=== PATIENT | male | born 1940 | race Caucasian/White ===

== ENCOUNTER 2017-10-24 09:51 | Emergency (ER) | payer MEDICARE, BC, OTHER ==
--- NOTE | 2017-10-24 10:29 | ER Document Report ---
ED Medical Screen (RME) - General Chief Complaint: Fever Stated Complaint: FEVER Time Seen by Provider: 10/24/17 10:22 Notes: Patient in good health and doing fine yesterday, but about 3:30 AM this morning , he got up to go to the bathroom and noticed he had chills. He went back to bed and 6:30 AM, he got up to go the bathroom again and "collapsed". witnessed the fall. Says that he was a bit "ny", but never actually completely lost consciousness. He also hit his left ribs when he fell. took his temperature at 8:30 AM and it was 101.8. Patient has a history of pneumonia 3 or 4 times in the past. No history of COPD or asthma. Non-smoker. NIDDM, hypertension, high cholesterol History of a heart murmur. TRAVEL OUTSIDE OF THE [place] IN LAST 30 DAYS: No - Related Data Allergies/Adverse Reactions: morphine Allergy (Verified 10/24/17 09:52) Past Medical History - Social History Chew tobacco use (# tins/day): No Frequency of alcohol use: None Drug Abuse: None Renal/ Medical History: Denies: Hx Peritoneal Dialysis Psychiatric Medical History: Denies: Hx Depression Physical Exam - Vital signs Vitals: Temp Pulse Resp BP Pulse Ox 99.7 F 93 20 127/70 H 92 10/24/17 10:15 10/24/17 10:15 10/24/17 10:15 10/24/17 10:15 10/24/17 10:15 Course - Vital Signs Vital signs: Temp Pulse Resp BP Pulse Ox 99.7 F 93 20 127/70 H 92 10/24/17 10:15 10/24/17 10:15 10/24/17 10:15 10/24/17 10:15 10/24/17 10:15
[2017-10-24 11:31] LABS: ABSOLUTE BASOPHILS # (AUTO) 0.1 10^3/uL (0.0-0.2); ABSOLUTE EOSINOPHILS # (AUTO) 0.1 10^3/uL (0.0-0.6); ABSOLUTE LYMPHOCYTES (AUTO) 0.8 10^3/uL (0.5-4.7); ABSOLUTE NEUT (AUTO) 10.4 10^3/uL (1.7-8.2); BASOPHILS % (AUTO) 0.5 % (0-2); EOSINOPHILS % (AUTO) 0.6 % (0-6); HEMATOCRIT 41.2 % (37.9-51.0); HEMOGLOBIN 13.8 g/dL (13.5-17.0); LYMPHOCYTES % (AUTO) 6.3 % (13-45); MEAN CORPUSCULAR HEMOGLOBIN 30.5 pg (27.0-33.4); MEAN CORPUSCULAR HGB CONC 33.5 g/dL (32.0-36.0); MEAN CORPUSCULAR VOLUME 91 fl (80-97); MONOCYTES % (AUTO) 8.4 % (3-13); PLATELET COUNT 244 10^3/uL (150-450); RED BLOOD COUNT 4.53 10^6/uL (4.35-5.55); RED CELL DISTRIBUTION WIDTH 14.7 % (11.5-14.0); SEGMENTED NEUTROPHILS % (AUTO) 84.2 % (42-78); TOTAL CELLS COUNTED % (AUTO) 100 %; WHITE BLOOD COUNT 12.3 10^3/uL (4.0-10.5)
[2017-10-24 11:47] LABS: APPEARANCE,URINE CLEAR; BILIRUBIN,URINE NEGATIVE (NEGATIVE); COLOR,URINE YELLOW; GLUCOSE, URINE NEGATIVE (NEGATIVE); KETONES,URINE NEGATIVE (NEGATIVE); LEUKOCYTE ESTERASE,URINE NEGATIVE (NEGATIVE); NITRITE,URINE NEGATIVE (NEGATIVE); PROTEIN,URINE NEGATIVE (NEGATIVE); URINE SPECIFIC GRAVITY 1.027
[2017-10-24 11:48] LABS: ALANINE AMINOTRANSFERASE 37 U/L (21-72); ALBUMIN 4.4 g/dL (3.5-5.0); ALKALINE PHOSPHATASE 64 U/L (38-126); ANION GAP 14 (5-19); ASPARTATE AMINO TRANSFERASE 26 U/L (17-59); BILIRUBIN,DIRECT 0.2 mg/dL (0.0-0.4); BILIRUBIN,TOTAL 0.5 mg/dL (0.2-1.3); BLOOD UREA NITROGEN 23 mg/dL (7-20); CALCIUM 9.3 mg/dL (8.4-10.2); CARBON DIOXIDE 26 mmol/L (22-30); CHLORIDE 100 mmol/L (98-107); GLUCOSE 135 mg/dL (75-110); POTASSIUM 4.2 mmol/L (3.6-5.0); SODIUM 139.8 mmol/L (137-145); TOTAL PROTEIN 6.6 g/dL (6.3-8.2)
--- NOTE | 2017-10-24 11:51 | RADIOLOGY REPORT (SQ) ---
EXAM DESCRIPTION: CT HEAD WITHOUT COMPLETED DATE/TIME: 10/24/2017 11:42 am REASON FOR STUDY: Collapsed, hit left face COMPARISON: None. TECHNIQUE: Axial images acquired through the brain without intravenous contrast. Images reviewed wi th bone, brain and subdural windows. Images stored on PACS. All CT scanners at this facility use dose modulation, iterative reconstruction, and/or weight based d osing when appropriate to reduce radiation dose to as low as reasonably achievable (ALARA). [facility]: Dose Right [facility]: CareDose [facility]: Dose Right [facility]: Teradose 4D [facility]: Smart RV ID RADIATION DOSE: mGy. LIMITATIONS: None. FINDINGS: VENTRICLES: Prominent. CEREBRUM: No masses. No hemorrhage. No midline shift. Areas of low density in the white matter mos t likely due to chronic micro-vascular ischemic change. No evidence for acute infarction. CEREBELLUM: No masses. No hemorrhage. No alteration of density. No evidence for acute infarction. EXTRAAXIAL SPACES: Mild age-related involutional change. No fluid collections. No masses. ORBITS AND GLOBE: No intra- or extraconal masses. Normal contour of globe without masses. CALVARIUM: No fracture. PARANASAL SINUSES: No fluid or mucosal thickening. SOFT TISSUES: No mass or hematoma. OTHER: No other significant finding. IMPRESSION: No acute abnormality in the brain. EVIDENCE OF ACUTE STROKE: NO. TECHNICAL DOCUMENTATION: JOB ID: [id number] Quality ID # [id number]: Final reports with documentation of one or more dose reduction techniques (e.g., Au tomated exposure control, adjustment of the mA and/or kV according to patient size, use of iterative reconstruction technique) 2010 [employer]- All Rights Reserved Reading location - IP/workstation name: [email or web address]
[2017-10-24] MEDS ORDERED: NORMAL SALINE 1000 ML 1,000 ML IV ONE (11:53)
[2017-10-24 12:01] LABS: TROPONIN I < 0.012 ng/mL
--- NOTE | 2017-10-24 12:16 | RADIOLOGY REPORT (SQ) ---
EXAM DESCRIPTION: CT CHEST WITHOUT COMPLETED DATE/TIME: 10/24/2017 11:47 am REASON FOR STUDY: fall, left side COMPARISON: None. TECHNIQUE: CT scan performed of the chest without intravenous contrast. Images reviewed with lung, soft tissue and bone windows. Reconstructed coronal and sagittal MPR images reviewed. All images st ored on PACS. All CT scanners at this facility use dose modulation, iterative reconstruction, and/or weight based d osing when appropriate to reduce radiation dose to as low as reasonably achievable (ALARA). [facility]: Dose Right [facility]: CareDose [facility]: Dose Right [facility]: Teradose 4D [facility]: Smart Technologies RADIATION DOSE: CT Rad equipment meets quality standard of care and radiation dose reduction techniq ues were employed. CTDIvol: 14.4 mGy. DLP: 790 mGy-cm. mGy. LIMITATIONS: No technical limitations. FINDINGS: LUNGS AND PLEURA: Segmental airspace disease left lower lobe. Subsegmental airspace disea se in the left upper lobe and right lower lobe. HILAR AND MEDIASTINAL STRUCTURES: No identified masses or abnormal nodes. No obvious aneurysm. HEART AND VASCULAR STRUCTURES: No aneurysm. No pericardial effusion. UPPER ABDOMEN: No significant findings. Limited exam. THYROID AND OTHER SOFT TISSUES: No masses. No adenopathy. BONES: No significant finding. HARDWARE: None in the chest. OTHER: No other significant findings. IMPRESSION: Left upper lobe and bilateral lower lobe airspace disease suspicious for pneumonia but c ould also represent lung contusion. However no rib fractures are identified. Clinical correlation i s needed. TECHNICAL DOCUMENTATION: JOB ID: [id number] Quality ID # [id number]: Final reports with documentation of one or more dose reduction techniques (e.g., Au tomated exposure control, adjustment of the mA and/or kV according to patient size, use of iterative reconstruction technique) 2010 [employer]- All Rights Reserved Reading location - IP/workstation name: [email or web address]
[2017-10-24] MEDS ORDERED: CEFTRIAXONE 1 GM/D5W RTU 1 GM/50 ML RTUPB IV ONE (12:34)
[2017-10-24] MEDS ORDERED: CEFTRIAXONE INJ 1000 MG VIAL IV ONE (13:06)
--- NOTE | 2017-10-24 13:09 | ER Document Report ---
ED General - General Chief Complaint: Fever Stated Complaint: FEVER Time Seen by Provider: 10/24/17 10:22 Mode of Arrival: Ambulatory Information source: Patient Notes: 77-year-old male resents with complaints of difficulty breathing. Patient notes he had a fever generalized body aches but that when he awoke this morning he had a syncopal episode falling and striking his back and his lungs. Patient notes difficulty breathing. Patient denies any nausea or vomiting TRAVEL OUTSIDE OF THE [place] IN LAST 30 DAYS: No - HPI Onset: This morning Onset/Duration: Sudden Quality of pain: Achy Severity: Mild Pain Level: 1 Associated symptoms: Body/muscle aches, Fever, Shortness of breath Exacerbated by: Deep breathing Relieved by: Denies Similar symptoms previously: No Recently seen / treated by doctor: No - Related Data Allergies/Adverse Reactions: morphine Allergy (Verified 10/24/17 09:52) Past Medical History - Social History Smoking Status: Never Smoker Cigarette use (# per day): No Chew tobacco use (# tins/day): No Smoking Education Provided: No Frequency of alcohol use: None Drug Abuse: None Family History: Reviewed & Not Pertinent Patient has suicidal ideation: No Patient has homicidal ideation: No Renal/ Medical History: Denies: Hx Peritoneal Dialysis Psychiatric Medical History: Denies: Hx Depression - Immunizations Hx Pneumococcal Vaccination: 08/24/10 Review of Systems - Review of Systems Notes: REVIEW OF SYSTEMS: CONSTITUTIONAL : Admits to fevers EENT: Denies eye, ear, throat, or mouth pain or symptoms. Denies nasal or sinus congestion or discharge. Denies throat, tongue, or mouth swelling or difficulty swallowing. CARDIOVASCULAR: Denies chest pain. Denies palpitations or racing or irregular heart beat. Denies ankle edema. RESPIRATORY: Admits to shortness of breath difficulty breathing GASTROINTESTINAL: Denies abdominal pain or distention. Denies nausea, vomiting , or diarrhea. Denies blood in vomitus, stools, or per rectum. Denies black, tarry stools. Denies constipation. GENITOURINARY: Denies difficulty urinating, painful urination, burning, frequency, blood in urine, or discharge. MUSCULOSKELETAL: Admits to body aches SKIN: Denies rash, lesions or sores. HEMATOLOGIC : Denies easy bruising or bleeding. LYMPHATIC: Denies swollen, enlarged glands. NEUROLOGICAL: Denies confusion or altered mental status. Denies passing out or loss of consciousness. Denies dizziness or lightheadedness. Denies headache. Denies weakness or paralysis or loss of use of either side. Denies problems with gait or speech. Denies sensory loss, numbness, or tingling. Denies seizures. PSYCHIATRIC: Denies anxiety or stress. Denies depression, suicidal ideation, or homicidal ideation. ALL OTHER SYSTEMS REVIEWED AND NEGATIVE. Dictation was performed using [employer] voice recognition software PHYSICAL EXAMINATION: GENERAL: Well-appearing, well-nourished and in no acute distress. HEAD: Atraumatic, normocephalic. EYES: Pupils equal round and reactive to light, extraocular movements intact, sclera anicteric, conjunctiva are normal. ENT: Nares patent, oropharynx clear without exudates. Moist mucous membranes. NECK: Normal range of motion, supple without lymphadenopathy LUNGS: Coarse breath sounds all throughout HEART: Regular rate and rhythm without murmurs ABDOMEN: Soft, nontender, nondistended abdomen. No guarding, no rebound. No masses appreciated. Musculoskeletal: Normal range of motion, no pitting or edema. No cyanosis. NEUROLOGICAL: Cranial nerves grossly intact. Normal speech, normal gait. Normal sensory, motor exams PSYCH: Normal mood, normal affect. SKIN: Contusions noted to the left back left anterior chest wall Physical Exam - Vital signs Vitals: Temp Pulse Resp BP Pulse Ox 99.7 F 93 20 127/70 H 92 10/24/17 10:15 10/24/17 10:15 10/24/17 10:15 10/24/17 10:15 10/24/17 10:15 Course - Re-evaluation Re-evalutation: Given patient's fever hypoxemia initial concern was for pneumonia versus influenza, however given the traumatic injury, a CT was performed which did note pulmonary contusions, 10/24/17 13:09 I had initially spoken with surgeon railroad construction director Dr. Eason, he requests transfer due to hypoxemia and age, I did speak with [facility] transfer center and ED physician Dr Alas who will accept the patient 10/24/17 16:28 Patient had been transported and was evaluated prior to his departure, he was stable in no distress but on nasal cannula - Vital Signs Vital signs: Temp Pulse Resp BP Pulse Ox 97.5 F 72 17 100/54 L 98 10/24/17 15:38 10/24/17 15:38 10/24/17 15:38 10/24/17 15:38 10/24/17 15:38 - Laboratory Result Diagrams: 10/24/17 11:00 10/24/17 11:00 Laboratory results interpreted by me: 10/24/17 10/24/17 10/24/17 11:00 11:00 11:00 WBC 12.3 H RDW 14.7 H Seg Neutrophils % 84.2 H Lymphocytes % 6.3 L Absolute Neutrophils 10.4 H BUN 23 H Glucose 135 H Urine Urobilinogen 4.0 H - Diagnostic Test Radiology reviewed: Image reviewed, Reports reviewed - Pulmonary contusions Critical Care Note - Critical Care Note Total time excluding time spent on procedures (mins): 40 Comments: 40 minutes of critical care time spent in direct contact evaluating and reevaluating the patient, treating symptoms, reviewing labs and studies and speaking with family and consultants excluding any procedures Discharge - Discharge Clinical Impression: Flu-like symptoms, Hypoxemia Contusion of lung Qualifiers: Encounter type: initial encounter Laterality: bilateral Qualified Code(s): S27.322A - Contusion of lung, bilateral, initial encounter Condition: Stable Disposition: [facility] Referrals: WILFREDO LABOY MD [Primary Care Provider] - Follow up as needed
[2017-10-24 15:41] VITALS: BP 100/54
--- NOTE | 2017-10-24 17:59 | EKG REPORT ---
SEVERITY:- ABNORMAL ECG - SINUS RHYTHM PROBABLE LEFT ATRIAL ABNORMALITY NONSPECIFIC T ABNORMALITIES, LATERAL LEADS : Confirmed by: Jose Pierce MD 24-Oct-2017 17:59:14
== END 2017-10-24 15:41 | disposition short-term general hospital (02) ==
LOC: ER 09:51
DX: S27.322A Contusion of lung, bilateral, initial encounter (principal); W19.XXXA Unspecified fall, initial encounter; Y93.89 Activity, other specified; R09.02 Hypoxemia; R50.9 Fever, unspecified; R06.02 Shortness of breath; Z88.5 Allergy status to narcotic agent
CPT/HCPCS: 93005; 99291; 96361; 96365; 36415; 87040; 82553; 85025; 80053; 81001; 84484; 70450; 71250; 93010; J0696; J7030

== ENCOUNTER 2019-04-12 07:23 | Day surgery (SDC) | payer MEDICARE, BC, OTHER ==
[~2019-04-12 07:23] MED LIST: BUPIVACAINE HCL 0.75% INJ/PF (7.5 MG/1 ML) 10 ML SDV OS PRN; KETOROLAC TROMETHAMINE 0.45% 4 DROP/0.4 ML DROPERETTE OS PRN; LIDOCAINE 4% INJ/PF (40 MG/ML) 5 ML AMPUL OS PRN; MIDAZOLAM 2 MG/2 ML INJ ONE
[2019-04-12] MEDS ORDERED: CHONDR SU A NA/HYALUR INTRAOC KIT (SURGICARE) ONE (07:24)
[2019-04-12] MEDS ORDERED: EPINEPHRINE INJ/PF 1 MG/1 ML AMPULE ONE (07:24)
[2019-04-12] MEDS ORDERED: LIDOCAINE 1% INJ-PF (10 MG/ML) 30 ML SDV ONE (07:24)
[2019-04-12] MEDS: TETRACAINE HCL 0.5% OPH SOLN 4 ML OS PRN ×3 (08:10→08:44)
[2019-04-12] MEDS: CYCLOPENTOLATE 0.2%/PHENYLEPHRINE 1% OPH SOLN 2 ML OS PRN ×3 (08:11→08:35)
[2019-04-12] MEDS: BESIFLOXACIN HCL 0.6% OPH SUSP 5 ML BOTTLE OS PRN ×4 (08:11→09:21)
[2019-04-12] MEDS: TROPICAMIDE 1% OPH SOLN 3 ML OS PRN ×3 (08:11→08:35)
[2019-04-12] MEDS: DORZOLAMIDE HCL 2%/TIMOLOL MALEAT 0.5% OPH SOLN 10 ML OS PRN ×2 (09:21)
[2019-04-12] MEDS ORDERED: TRIAMCINOLONE ACETONIDE INJ 40 MG/1 ML VIAL ONE (12:37)
[2019-04-12] MEDS ORDERED: NORMAL SALINE INJ/PF 0.9% 10 ML SDV ONE (12:37)
--- NOTE | 2019-04-12 14:52 | Operative Report ---
Operative Report-[facility] Operative Report: DATE OF SURGERY: 04/12/2019 PREOPERATIVE DIAGNOSIS: CATARACT, LEFT EYE. POSTOPERATIVE DIAGNOSIS: CATARACT, LEFT EYE. PROCEDURE PERFORMED: PHACOEMULSIFICATION WITH POSTERIOR CHAMBER INTRAOCULAR LENS, LEFT EYE. Intraocular Lens Model : Toric intraocular lens SN 6 A T3 20.0 diopter Total Phaco Time: 4.87 CDE SURGEON: ITALIA JORGENSEN MD ANESTHESIA: TOPICAL WITH MAC. INDICATIONS FOR SURGERY: Difficulty with night driving PROCEDURE: The patient was brought to the Operating Room and placed in a seated position. a lid speculum was placed in the eye. the 0.180, and 270 degree axis of the cornea was marked with a toric marker. the patien was place in a reclining position. Following tetracaine drops, topical anesthesia was administered. This consisted of instrument wipe pledgets soaked in a solution of 4% Xylocaine mixed with 0.75% Marcaine in a 1:2 ratio. A 2 x 1 cm pledget was placed in the superior fornix. A 1 x 1 cm pledget was placed in the inferior fornix. The eye was patched shut for 5 minutes. The patch was removed. The eye was sterilely prepped and draped in the usual manner. Lid speculum was placed in the eye. The pledgets were removed. 4-0 black silk sutures were placed around the superior and the inferior rectus muscles to be used as traction. A conjunctival peritomy was made at the 10 o'clock position. Hemostasis was obtained with bipolar cautery. A posterior limbal groove was created using a crescent knife and dissected anteriorly towards the cornea. A sharp point blade was used to create a paracentesis site at the 2 o'clock position. 0.2 cc non preserved Lidocaine was injected into the anterior chamber. A 2.4 mm keratome was used to enter the anterior chamber through the groove. Viscoelastic was injected into the anteriorchamber. An anterior capsulotomy was performed using Utrata forceps in acapsulorrhexis fashion. Hydrodissection and hydrodelineation were performed. Phacoemulsification was performed in [id number] technique. Following this, the I/A unit was used to remove residual cortex. Viscoelastic was injected into the capsular bag. The Intraocular lens was placed in the capsular bag. The 173 degree axis of the eye was marked using a toric marker and the previously marked sites as reference. The lens was centered at this axis. The I/A unit was used to remove residual viscoelastic. The wound was seen to be watertight under high and low pressure, and no sutures were placed. The intraocular lens was well centered. The pressure was adjusted in the eye to normal pressure. The 4-0 black silk sutures and lid speculum were removed. The eye was shielded after Besivance and Cosopt drops were placed. The patient tolerated the procedure well and was sent to the Recovery Room in good condition.
--- NOTE | 2019-04-12 14:53 | PDOC DISCHARGE SUMMARY ---
Discharge Summary-[facility] Discharge Summary: DATE: 04/12/2019 FINAL DIAGNOSIS: CATARACT, LEFT EYE PROCEDURE: Cataract surgery with toric intraocular lens implant left eye HOSPITAL COURSE: The patient will be discharged to home. The patient is instructed to resume preoperative medications, take Tylenol as needed for discomfort, to keep the eye shielded, They should use the prescribed antibiotic, NSAID, and steroid at 3 PM and 8 PM, and to follow up in my office in 1 day.
== END 2019-04-12 10:02 | disposition home or self-care (01) ==
LOC: SC 07:23
PROVIDERS: ATTEND Ophthalmology
DX: H25.813 Combined forms of age-related cataract, bilateral (principal); H04.123 Dry eye syndrome of bilateral lacrimal glands; I10 Essential (primary) hypertension; Z79.899 Other long term (current) drug therapy; E11.9 Type 2 diabetes mellitus without complications; Z87.891 Personal history of nicotine dependence
CPT/HCPCS: 66984; 82962; 00142; J2250; J3490 ×6; A9270; J0171; J3301; 142; V2787

== ENCOUNTER 2019-05-03 08:25 | Day surgery (SDC) | payer MEDICARE, BC, OTHER ==
[~2019-05-03 08:25] MED LIST changes: -BUPIVACAINE HCL 0.75% INJ/PF (7.5 MG/1 ML) 10 ML SDV OS PRN; +KETOROLAC TROMETHAMINE 0.45% 4 DROP/0.4 ML DROPERETTE OD PRN; -KETOROLAC TROMETHAMINE 0.45% 4 DROP/0.4 ML DROPERETTE OS PRN; -LIDOCAINE 4% INJ/PF (40 MG/ML) 5 ML AMPUL OS PRN; -MIDAZOLAM 2 MG/2 ML INJ ONE; +TETRACAINE HCL 0.5% OPH SOLN 4 ML OD PRN
[2019-05-03] MEDS ORDERED: MIDAZOLAM 2 MG/2 ML INJ ONE (08:57)
[2019-05-03] MEDS ORDERED: ONDANSETRON HCL INJ/PF 4 MG/2 ML SDV ONE (08:57)
[2019-05-03] MEDS ORDERED: FENTANYL CITRATE INJ/PF 100 MCG/2 ML AMPUL ONE (08:58)
[2019-05-03] MEDS: BESIFLOXACIN HCL 0.6% OPH SUSP 5 ML BOTTLE OD PRN ×4 (09:30→10:56)
[2019-05-03] MEDS: TROPICAMIDE 1% OPH SOLN 3 ML OD PRN ×3 (09:30→09:50)
[2019-05-03] MEDS: CYCLOPENTOLATE 0.2%/PHENYLEPHRINE 1% OPH SOLN 2 ML OD PRN ×3 (09:30→09:50)
[2019-05-03] MEDS: TETRACAINE HCL 0.5% OPH SOLN 0.6 ML DROPERETTE OD PRN ×3 (09:30→10:13)
[2019-05-03] MEDS: LIDOCAINE 4% INJ/PF (40 MG/ML) 5 ML AMPUL OD PRN ×2 (10:25)
[2019-05-03] MEDS: BUPIVACAINE HCL 0.75% INJ/PF (7.5 MG/1 ML) 10 ML SDV OD PRN ×2 (10:25)
[2019-05-03] MEDS: CHONDR SU A NA/HYALUR INTRAOC KIT (SURGICARE) ONE ×2 (10:38)
[2019-05-03] MEDS: EPINEPHRINE INJ/PF 1 MG/1 ML AMPULE ONE ×2 (10:38)
[2019-05-03] MEDS: LIDOCAINE 1% INJ-PF (10 MG/ML) 30 ML SDV ONE ×2 (10:38)
[2019-05-03] MEDS: DORZOLAMIDE HCL 2%/TIMOLOL MALEAT 0.5% OPH SOLN 10 ML OD PRN ×2 (10:56)
--- NOTE | 2019-05-03 14:16 | Operative Report ---
Operative Report-[facility] Operative Report: DATE OF SURGERY: 05/03/2019 PREOPERATIVE DIAGNOSIS: CATARACT, RIGHT EYE. POSTOPERATIVE DIAGNOSIS: CATARACT,RIGHT EYE. PROCEDURE PERFORMED: PHACOEMULSIFICATION WITH POSTERIOR CHAMBER INTRAOCULAR LENS, RIGHT EYE. Intraocular Lens Model : SN 6 A T4 20.5 toric Total Phaco Time: 4.49 CDE SURGEON: ITALIA JORGENSEN MD ANESTHESIA: TOPICAL WITH MAC. INDICATIONS FOR SURGERY: Difficulty with night driving PROCEDURE: The patient was brought to the Operating Room and placed in a seated position. a lid speculum was placed in the eye. the 0.180, and 270 degree axis of the cornea was marked with a toric marker. the patien was place in a reclining position. Following tetracaine drops, topical anesthesia was administered. This consisted of instrument wipe pledgets soaked in a solution of 4% Xylocaine mixed with 0.75% Marcaine in a 1:2 ratio. A 2 x 1 cm pledget was placed in the superior fornix. A 1 x 1 cm pledget was placed in the inferior fornix. The eye was patched shut for 5 minutes. The patch was removed. The eye was sterilely prepped and draped in the usual manner. Lid speculum was placed in the eye. The pledgets were removed. 4-0 black silk sutures were placed around the superior and the inferior rectus muscles to be used as traction. A conjunctival peritomy was made at the 10 o'clock position. Hemostasis was obtained with bipolar cautery. A posterior limbal groove was created using a crescent knife and dissected anteriorly towards the cornea. A sharp point blade was used to create a paracentesis site at the 2 o'clock position. 0.2 cc non preserved Lidocaine was injected into the anterior chamber. A 2.4 mm keratome was used to enter the anterior chamber through the groove. Viscoelastic was injected into the anteriorchamber. An anterior capsulotomy was performed using Utrata forceps in acapsulorrhexis fashion. Hydrodissection and hydrodelineation were performed. Phacoemulsification was performed in [id number] technique. Following this, the I/A unit was used to remove residual cortex. Viscoelastic was injected into the capsular bag. The Intraocular lens was placed in the capsular bag. The 170 degree axis of the eye was marked using a toric marker and the previously marked sites as reference. The lens was centered at this axis. The I/A unit was used to remove residual viscoelastic. The wound was seen to be watertight under high and low pressure, and no sutures were placed. The intraocular lens was well centered. The pressure was adjusted in the eye to normal pressure. The 4-0 black silk sutures and lid speculum were removed. The eye was shielded after Besivance and Cosopt drops were placed. The patient tolerated the procedure well and was sent to the Recovery Room in good condition.
== END 2019-05-03 11:35 | disposition home or self-care (01) ==
LOC: SC 08:25
PROVIDERS: ATTEND Ophthalmology
DX: H25.811 Combined forms of age-related cataract, right eye (principal); Z96.1 Presence of intraocular lens; I10 Essential (primary) hypertension; Z79.899 Other long term (current) drug therapy; E11.9 Type 2 diabetes mellitus without complications; Z79.84 Long term (current) use of oral hypoglycemic drugs; Z79.82 Long term (current) use of aspirin
CPT/HCPCS: 66984; 82962; V2787; J2250; J3490 ×5; A9270; J0171; J3010; J2405; 142